=== PATIENT | male | born 1990 | race Caucasian/White ===

== ENCOUNTER 2017-07-27 17:20 | Emergency (ER) | payer MEDICAID ==
[~2017-07-27] VITALS: Ht 193 cm; Wt 89.8 kg
[2017-07-27 17:31] VITALS: BP 127/73
[2017-07-27] MEDS ORDERED: METHOCARBAMOL 750 MG TABLET ONE (17:52)
[2017-07-27] MEDS ORDERED: KETOROLAC 30 MG/1 ML ONE (17:53)
[2017-07-27] MEDS ORDERED: KETOROLAC 30 MG/1 ML IM ONE (18:00)
[2017-07-27] MEDS ORDERED: METHOCARBAMOL 750 MG TABLET PO ONE (18:00)
== END 2017-07-27 19:26 | disposition home or self-care (01) ==
LOC: ED 19:20
DX: M54.32 Sciatica, left side (principal); F17.200 Nicotine dependence, unspecified, uncomplicated
CPT/HCPCS: 72110; 96372; 99284; J1885